=== PATIENT | male | born 1980 | race African-American/Black ===

== ENCOUNTER 2018-09-24 13:19 | Emergency (ER) | payer SELFPAY ==
[2018-09-24] MEDS ORDERED: DIAZEPAM INJ 10 MG/2 ML DISP.SYRIN IV ONE (16:00)
[2018-09-24] MEDS ORDERED: DEXAMETHASONE SOD PHOS INJ 10 MG/1 ML VIAL IV ONE (16:00)
[2018-09-24] MEDS ORDERED: KETOROLAC TROMETHAMINE INJ/PF 30 MG/1 ML SDV IV ONE (16:00)
[2018-09-24] MEDS ORDERED: LIDOCAINE 5% (700 MG) TRANSDERMAL ADH..PATCH TP ONE (16:01)
[2018-09-24] MEDS ORDERED: ACETAMINOPHEN 325 MG TABLET PO ONE (16:01)
--- NOTE | 2018-09-24 16:07 | ER Document Report ---
HPI - HPI Patient complains to provider of: Thoracic back pain left side Time Seen by Provider: 09/24/18 15:33 Pain Level: 5 Context: 37-year-old male with no medical problems presents in acute distress brought in by ambulance for left thoracic back pain sustained at work. 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 He did not try to take anything for it, denies any urinary retention, denies any bowel incontinence, denies any saddle paresthesia, denies any acute shortness of breath or weakness, denies any numbness/tingling/paralysis in any of his extremities. Eyes fevers or IV drug use. He says that he may have injured it working out and went to an urgent care last week where they gave him 3 days of muscle relaxers and told him that it should loosen up. He received no further treatment. - CONSTITUTIONAL Constitutional: DENIES: Fever, Chills - EENT EENT: DENIES: Sore Throat, Ear Pain, Eye problems - NEURO Neurology: DENIES: Headache, Weakness, Vision blurred, Dizzinesss / Vertigo - CARDIOVASCULAR Cardiovascular: DENIES: Chest pain - RESPIRATORY Respiratory: DENIES: Trouble Breathing, Coughing - GASTROINTESTINAL Gastrointestinal: DENIES: Abdominal Pain, Black / Bloody Stools - URINARY Urinary: DENIES: Dysuria, Urgency, Frequency - MUSCULOSKELETAL Musculoskeletal: REPORTS: Extremity pain Past Medical History - Social History Smoking Status: Unknown if Ever Smoked Chew tobacco use (# tins/day): No Frequency of alcohol use: None Family History: None Patient has suicidal ideation: No Patient has homicidal ideation: No Renal/ Medical History: Denies: Hx Peritoneal Dialysis - Immunizations Hx Diphtheria, Pertussis, Tetanus Vaccination: Yes Hx Pneumococcal Vaccination: 04/13/00 Vertical Provider Document - CONSTITUTIONAL Notes: PHYSICAL EXAMINATION: Reviewed vital signs and charting by RN GENERAL: Alert, interacts well. Acute distress. HEAD: Normocephalic, atraumatic. EYES: Pupils equal and round. Extraocular movements intact. ENT: Oral mucosa moist, tongue midline. NECK: Full range of motion. Trachea midline. LUNGS: Clear to auscultation bilaterally, no wheezes, rales, or rhonchi. No respiratory distress. HEART: Regular rate and rhythm. No murmur ABDOMEN: soft, non-tender. No distention. Bowel sounds present BACK: Acute tenderness to palpation left middle back approximately T10-T12 causing acute distress when pressing on the paraspinal muscles. Patient is unable to move secondary to pain sitting in the wheelchair. EXTREMITIES: Moves all 4 extremities spontaneously. No edema, No cyanosis. PSYCH: Normal affect, normal mood. SKIN: Warm, dry, normal turgor. No rashes or lesions noted. - INFECTION CONTROL TRAVEL OUTSIDE OF THE [place] IN LAST 30 DAYS: No Course - Re-evaluation Re-evalutation: 09/24/18 16:11 Plan is aggressive treatment for this acute back pain. No red flags present. Plan to give Toradol 30 IV, dexamethasone 10 mg IV, Valium 10 mg IV, Tylenol 975 mg p.o., and put a Lidoderm patch on him. I will also send him home with short course of Valium. Stable for discharge as there is no red flags or any concerning surgical condition at this time. - Vital Signs Vital signs: Temp Pulse Resp BP Pulse Ox 98.6 F 86 16 152/99 H 97 09/24/18 13:31 09/24/18 13:31 09/24/18 13:31 09/24/18 13:31 09/24/18 13:31 Discharge - Discharge Clinical Impression: Back pain Qualifiers: Back pain location: thoracic back pain Chronicity: acute Back pain laterality: left Qualified Code(s): M54.6 - Pain in thoracic spine Condition: Good Disposition: HOME, SELF-CARE Instructions: Muscle Strain (OM), Pain Medication Injection (OM), Warm Packs (OM) Additional Instructions: You are seen in the emergency department this afternoon for back pain on your left side middle back. Your physical exam is consistent muscle strain that is pressing on the nerve root causing the severe pain and discomfort. He received several medications to help ease the pain. You got Toradol IV, Decadron IV, Valium IV, Tylenol by mouth, and we put a Lidoderm patch on your area of pain. Hopefully all of this will reduce the pain and make it more tolerable for you. I do want you to take the next day or 2 off of work. Please do not just lay in bed all day though, as this could make the pain worse. It is okay to rest for periods at a time but it is important to get up and move around periodically with gentle range of motion stretches when you are able to tolerated in this acute phase is over. Please immediately return to the emergency department if you develop any other red flags we talked about: Urinary retention, bowel incontinence, saddle numbness. If you develop severe, acute shortness of breath or severe chest pain return to the emergency department immediately. Please take Motrin 600 mg every 6 hours with food or milk [id number] for the next 4 to 5 days and Tylenol 1000 mg every 6 hours as needed for pain.
[2018-09-24 16:43] VITALS: BP 136/72
== END 2018-09-24 16:43 | disposition home or self-care (01) ==
LOC: ER 13:19
DX: M54.6 Pain in thoracic spine (principal)
CPT/HCPCS: 99283; 96374; 96375; J3360; J1885; J1100

== ENCOUNTER 2018-10-30 10:36 | Emergency (ER) | payer SELFPAY ==
[2018-10-30] MEDS ORDERED: LIDOCAINE 1% INJ-PF (10 MG/ML) 30 ML SDV INJ ONE ×2 (11:12→13:54)
[2018-10-30] MEDS ORDERED: CLINDAMYCIN 600 MG/D5W RTU 600 MG/50 ML RTUPB IV ONE (11:12)
--- NOTE | 2018-10-30 11:15 | ER Document Report ---
ED Medical Screen (RME) - General Chief Complaint: Insect Bite Stated Complaint: INSECT BITE Time Seen by Provider: 10/30/18 11:09 TRAVEL OUTSIDE OF THE [place] IN LAST 30 DAYS: No - HPI Notes: 10/30/18 11:13 Patient is a 37-year-old male past medical history swelling, redness to his left axilla/arm. Patient states that this has been present for 2 days. Denies IV drug abuse or history of MRSA. Patient states that he was nauseous this morning. He is able to eat and drink without difficulty otherwise. He is urinating normally. Denies drug allergies. Denies ARAYA, fever, neck pain, URI, CP, SOB, Abd pain, dysuria, back pain. I have treated and performed a rapid initial assessment of this patient. A comprehensive ED assessment and evaluation of the patient, analysis of test results and completion of medical decision making process will be conducted by additional ED providers. PHYSICAL EXAMINATION: GENERAL: Well-appearing, well-nourished and in no acute distress. A&Ox4. Answers questions appropriately. LUNGS: Breath sounds clear to auscultation bilaterally and equal. No wheezes rales or rhonchi. HEART: Regular rate and rhythm without murmurs, rubs, gallops. Lt UE/axilla: + moderate sized abscess noted with fluctuance. + induration and erythema encompassing most of his bicep/medial upper arm. + tenderness. - Related Data Allergies/Adverse Reactions: No Known Allergies Allergy (Verified 10/30/18 10:52) Past Medical History Renal/ Medical History: Denies: Hx Peritoneal Dialysis - Immunizations Hx Diphtheria, Pertussis, Tetanus Vaccination: Yes
[2018-10-30 11:51] LABS: ABSOLUTE BASOPHILS # (AUTO) 0.1 10^3/uL (0.0-0.2); ABSOLUTE LYMPHOCYTES (AUTO) 1.4 10^3/uL (0.5-4.7); ABSOLUTE NEUT (AUTO) 6.6 10^3/uL (1.7-8.2); BASOPHILS % (AUTO) 0.8 % (0-2); EOSINOPHILS % (AUTO) 0.2 % (0-6); HEMATOCRIT 43.7 % (37.9-51.0); HEMOGLOBIN 13.7 g/dL (13.5-17.0); LYMPHOCYTES % (AUTO) 15.6 % (13-45); MEAN CORPUSCULAR HEMOGLOBIN 22.8 pg (27.0-33.4); MEAN CORPUSCULAR HGB CONC 31.4 g/dL (32.0-36.0); MEAN CORPUSCULAR VOLUME 73 fl (80-97); MONOCYTES % (AUTO) 10.6 % (3-13); PLATELET COUNT 188 10^3/uL (150-450); RED BLOOD COUNT 6.02 10^6/uL (4.35-5.55); RED CELL DISTRIBUTION WIDTH 14.2 % (11.5-14.0); SEGMENTED NEUTROPHILS % (AUTO) 72.8 % (42-78); TOTAL CELLS COUNTED % (AUTO) 100 %; WHITE BLOOD COUNT 9.1 10^3/uL (4.0-10.5)
[2018-10-30 12:06] LABS: ANION GAP 10 (5-19); BLOOD UREA NITROGEN 22 mg/dL (7-20); CALCIUM 9.5 mg/dL (8.4-10.2); CARBON DIOXIDE 27 mmol/L (22-30); CHLORIDE 103 mmol/L (98-107); GLUCOSE 93 mg/dL (75-110); POTASSIUM 4.6 mmol/L (3.6-5.0); SODIUM 140.1 mmol/L (137-145)
--- NOTE | 2018-10-30 13:34 | ER Document Report ---
ED Skin Rash/Insect Bite/Abscs - General Chief Complaint: Insect Bite Stated Complaint: INSECT BITE Time Seen by Provider: 10/30/18 11:09 Mode of Arrival: Ambulatory Information source: Patient Notes: 37-year-old otherwise healthy male patient here for a left axillary abscess for 2 days. Area painful, swollen, red. No drainage or fever. No history of days before. No numbness or tingling. No lesions anywhere else. No recent antibiotics or steroids. History of diabetes. Has not sought care until now. No other complaints this time. TRAVEL OUTSIDE OF THE [place] IN LAST 30 DAYS: No - Related Data Allergies/Adverse Reactions: No Known Allergies Allergy (Verified 10/30/18 10:52) Past Medical History - Social History Family History: None Renal/ Medical History: Denies: Hx Peritoneal Dialysis - Immunizations Hx Diphtheria, Pertussis, Tetanus Vaccination: Yes Hx Pneumococcal Vaccination: 04/13/00 Physical Exam - Vital signs Vitals: Temp Pulse Resp BP Pulse Ox 98.3 F 82 18 126/73 H 95 10/30/18 10:54 10/30/18 10:54 10/30/18 10:54 10/30/18 10:54 10/30/18 10:54 - Notes Notes: GENERAL_APPEARANCE: well_nourished, alert, cooperative, no_acute distress, no_obvious discomfort. Pleasant, smiling, speaking in full sentences, in no sign of pain or resp distress, easily sitting up VITALS: reviewed, see vital signs table. HEENT: PERRL, EOMI, no pharyngeal edema, normal speech, no nasal drainage, no airway obstruction, no lymphadenopathy. no tongue or lip swelling. HEART: RRR LUNGS: CTAB EXTREMITIES: good pulses in all extremities, no edema. Full rom. full strength. brisk cap refill. Normal gait. no other swelling or ttp. good hand concreter. SKIN: warm, dry, good_color, just distal to the left axilla anteriorly there is a large approximate 5 cm x 2 cm raised fluctuant abscess is tender to palpate and erythematous. There is some erythema that extends three fourths the way down the humerus medially but I did david with a skin marker for tracking purposes. There are no grossly palpable left axillary lymph nodes. There is no streaking or tracking proximally. Patient also has a insect bite to his right anterior chest however that does not require I&D., no drainage, streaking, induration, fluctuation, or bleeding. no grossly visible or palpable fb, no sign of compartment syndrome or septic jt. area ttp. no sign of allergic reaction or anaphylaxis NEURO: motor_intact, sensory_intact. cranial nerves 2-12 intact. cerebellar fxn intact Course - Re-evaluation Re-evalutation: 10/30/18 16:12 Patient here for left axillary abscess that was pretty large. I did I&D as described in procedure note. Packing was placed. Advised to return 2 days for packing change and wound check. he was given IV Clindamycin here as a triage order. His white count was wnl. Labs were otherwise unremarkable. Blood and wound cultures pending. We will discharge him with clindamycin. Tylenol or Motrin as needed for any pain. Advised wound care. ER precautions given. Vital signs stable. Neuro nonfocal otherwise well-appearing and nontoxic. He is afebrile On reexam, pt improved with tx listed. remained stable. nontoxic. well appearing. pain controlled. tolerating po. requesting to go home. Documentation achieved through voice recording which my lead to some occasional accidental typographical errors. Extensive efforts have been made to proof read documentation to make sure these are the least as possible. Category Date Time Status I and D [I&D Setup (ED)] NOW Care 10/30/18 13:54 Completed I&D Setup (ED) NOW Care 10/30/18 11:12 Completed Lock [Saline Lock (ED)] NOW Care 10/30/18 11:11 Completed BASIC METABOLIC PANEL [CHEM] Stat Lab 10/30/18 11:20 Completed BLOOD CULTURE [MC] Stat Lab 10/30/18 11:53 Received CBC WITH DIFF [HEME] Stat Lab 10/30/18 11:20 Completed WOUND CULTURE + GRAM STAIN [MC] Stat Lab 10/30/18 16:08 Uncollected Clindamycin 600 mg/D5w RTU [Cleocin RTU 600 mg/D5w 50 Med 10/30/18 11:12 Discontinued ml Premix] 600 mg in 50 ml IV NOW Lidocaine HCl/Pf [Xylocaine 1% Inj-Pf (10 mg/ml) 30 ml Med 10/30/18 13:56 Discontinued Sdv] 30 ml .ROUTE .STK-MED ONE Lidocaine HCl/Pf [Xylocaine 1% Inj-Pf (10 mg/ml) 30 ml Med 10/30/18 11:12 Discontinued Sdv] See Dose Instructions INJ NOW ONE Lidocaine HCl/Pf [Xylocaine 1% Inj-Pf (10 mg/ml) 30 ml Med 10/30/18 13:54 Discontinued Sdv] See Dose Instructions INJ NOW ONE 10/30/18 16:14 - Vital Signs Vital signs: Temp Pulse Resp BP Pulse Ox 98.3 F 82 18 126/73 H 95 10/30/18 10:54 10/30/18 10:54 10/30/18 10:54 10/30/18 10:54 10/30/18 10:54 10/30/18 16:14 Temp Pulse Resp BP Pulse Ox 10/30/18 10:54 98.3 F 82 18 126/73 H 95 - Laboratory Result Diagrams: 10/30/18 11:20 10/30/18 11:20 Laboratory results interpreted by me: 10/30/18 10/30/18 11:20 11:20 RBC 6.02 H MCV 73 L MCH 22.8 L MCHC 31.4 L RDW 14.2 H BUN 22 H 10/30/18 16:14 Labs- Entire Visit 10/30/18 10/30/18 11:20 11:20 WBC 9.1 RBC 6.02 H Hgb 13.7 Hct 43.7 MCV 73 L MCH 22.8 L MCHC 31.4 L RDW 14.2 H Plt Count 188 Seg Neutrophils % 72.8 Lymphocytes % 15.6 Monocytes % 10.6 Eosinophils % 0.2 Basophils % 0.8 Absolute Neutrophils 6.6 Absolute Lymphocytes 1.4 Absolute Monocytes 1.0 Absolute Eosinophils 0.0 Absolute Basophils 0.1 Sodium 140.1 Potassium 4.6 Chloride 103 Carbon Dioxide 27 Anion Gap 10 BUN 22 H Creatinine 1.21 Est GFR ( Amer) > 60 Est GFR (Non-Af Amer) > 60 Glucose 93 Calcium 9.5 Procedures - Incision and Drainage Left Proximal Arm Time completed: 16:00 Type: Single Anesthetic type: 1% Lidocaine mL's of anesthetic: 7 Blade size: 11 I&D procedure: Betadine prep applied, Iodoform packing placed, Sterile dressing applied Incision Method: Incision made by scalpel - approx 2cm superficial and linear in the central most fluctuant area. culture obtained from purulence here. Amount/type of drainage: 10 ml of malodorous purulence expressed. loculations broken up Notes: 10/30/18 16:16 loculations broken up with hemostats gently. packing placed. nonstick, gauze, and tape applied. hemostasis achieved. pt tolerated procedure well. procedure without incident. area of surrounding erythema marked with a skin marker Discharge - Discharge Clinical Impression: Abscess of left axilla Condition: Stable Disposition: HOME, SELF-CARE Instructions: Abscess ([facility]), Post Incision and Drainage Additional Instructions: Follow-up with PCP 1 to 2 days. Return for any worsening symptoms. Return in 2 days for packing change and wound check, sooner if worse. Take the antibiotics as prescribed and with food. Tylenol or Motrin as needed for any pain. Wound care as discussed. Prescriptions: Clindamycin HCl [Cleocin 150 mg Capsule] 450 mg PO Q6 7 Days #84 capsule
[2018-10-30] MEDS ORDERED: LIDOCAINE 1% INJ-PF (10 MG/ML) 30 ML SDV ONE (13:56)
[2018-10-30 16:48] VITALS: BP 124/74
== END 2018-10-30 16:40 | disposition home or self-care (01) ==
LOC: ER 10:36
PROC: 0H9CXZZ Drainage of Left Upper Arm Skin, External Approach (ICD-10-PCS; principal; 2018-10-30)
DX: S40.862A Insect bite (nonvenomous) of left upper arm, initial encounter (principal); W57.XXXA Bitten or stung by nonvenomous insect and other nonvenomous arthropods, initial encounter
CPT/HCPCS: 36415; 87040; 87070; 87205; 85025; 87075; 80048; 10060; A6266; 87077